=== PATIENT | female | born 1965 | race Caucasian/White ===

== ENCOUNTER 2017-02-01 21:00 | Inpatient (IN) | payer OTHER, MEDICARE ==
[~2017-02-01] VITALS: Ht 167.6 cm; Wt 93.9 kg
[2017-02-01 21:27] VITALS: BP 151/79; PULSE 98; RESP 19; TEMP 97.7; O2SAT 98
[2017-02-01] MEDS ORDERED: BENZTROPINE MESYLATE 1 MG TAB PO PRN (21:45)
[2017-02-01] MEDS ORDERED: GLUCAGON 1 MG/ML VIAL OTHER PRN (21:45)
[2017-02-01] MEDS ORDERED: LORazepam 2 MG/ML VIAL - age > 65 yrs IM PRN (21:45)
[2017-02-01] MEDS ORDERED: ALUMINUM/MAGNESIUM/SIMETH 30 ML CUP PO PRN (21:45)
[2017-02-01] MEDS ORDERED: DEXTROSE 50% IN WATER 50 ML VIAL(D50) IV PUSH PRN (21:45)
[2017-02-01] MEDS ORDERED: BENZTROPINE MESYLATE 2 MG/2 ML VIAL IM PRN (21:45)
[2017-02-01] MEDS ORDERED: MAGNESIUM HYDROXIDE SUSP 30 ML CUP PO PRN (21:45)
[2017-02-02] MEDS: LORazepam 0.5 MG TAB age > 65 yrs PO PRN ×2 (00:05→22:00)
[2017-02-02] MEDS: diphenhydrAMINE HCL 50 MG CAP - HS PRN PO ×2 (00:06→22:00)
[2017-02-02 06:08] VITALS: BP 102/65; PULSE 98; RESP 18; TEMP 97.8; O2SAT 97
[2017-02-02] MEDS: LOW DOSE INSULIN NOVOLOG SUPPLEMENTAL SCALE SQ SCH ×4 (06:21→21:24)
[2017-02-02] MEDS: NICOTINE 21 MG/24 HR PATCH T-DERMAL SCH (09:00)
[2017-02-02] MEDS: ACETAMINOPHEN 325 MG TAB PO PRN (09:34)
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
[2017-02-02 14:38] LABS: AUTOMATED NEUTROPHIL # 7.9 TH/MM3 (1.8-7.7); BASOPHIL % 0.3 % (0.0-2.0); EOSINOPHIL # 0.1 TH/MM3 (0-0.4); EOSINOPHIL % 1.2 % (0.0-4.0); HEMATOCRIT 42.2 % (35.0-46.0); HEMO FLAGS DIFF FINAL; LYMPH % 25.1 % (9.0-44.0); LYMPHOCYTE # 2.9 TH/MM3 (1.0-4.8); MEAN CELL VOLUME 88.4 FL (80.0-100.0); MEAN CORPUSCULAR HEMOGLOBIN 30.4 PG (27.0-34.0); MEAN CORPUSCULAR HGB CONC 34.4 % (32.0-36.0); MONO % 5.8 % (0.0-8.0); NEUT % 67.6 % (16.0-70.0); PLATELET COUNT 301 TH/MM3 (150-450); RED BLOOD COUNT 4.77 MIL/MM3 (4.00-5.30); RED CELL DISTRIBUTION WIDTH 13.1 % (11.6-17.2); WHITE BLOOD COUNT 11.7 TH/MM3 (4.0-11.0)
[2017-02-02 15:05] LABS: ALKALINE PHOSPHATASE 90 U/L (45-117); ALT (GPT) 46 U/L (10-53); ANION GAP 10 MEQ/L (5-15); AST (GOT) 29 U/L (15-37); BICARBONATE 27.7 MEQ/L (21.0-32.0); BLOOD UREA NITROGEN 20 MG/DL (7-18); CHLORIDE 95 MEQ/L (98-107); GLOMERULAR FILTRATION RATE 68 ML/MIN (>89); HDL CHOLESTEROL 44.6 MG/DL (40.0-60.0); POTASSIUM 4.4 MEQ/L (3.5-5.1); SODIUM (NA) 133 MEQ/L (136-145); TOTAL BILIRUBIN ADULT 0.3 MG/DL (0.2-1.0)
[2017-02-02 16:27] LABS: HEMOGLOBIN A1b 2.3 %; HEMOGLOBIN Ao 82.9 %; HEMOGLOBIN LA1C 2.8 %; HEMOGLOBIN P3 4.2 %
[2017-02-02 16:48] LABS: AMPHETAMINE, URINE NEG (NEG); BARBITURATES, URINE NEG (NEG); COCAINE, URINE NEG (NEG)
--- NOTE | 2017-02-02 16:59 | PD.CONS ---
[facility] By Dr. Basurto Reason for Consult Medical management Primary Care Physician Unknown Diagnoses: History of Present Illness Ms. Luo is a 51-year-old female with a known history of chronic pain with opiate dependency and suicidal ideation, depression, anxiety, diabetes mellitus , BRONSON, gastroparesis, rheumatoid arthritis and systemic lupus. Patient had recent hospitalization this month at [facility] for a 10-day episode of nausea, vomiting and continued abdominal pain with inability to take her medications for 3-4 days prior to hospitalization. Per records, supposedly patient's family brought her to the hospital due to altered mental status, hallucinations with suicidal ideations and patient was mtz acted at that time , all likely related to withdrawal of opiates. At this time, patient is seen in 2600 psych unit due to suicidal ideations in the Emergency room related to her severe neck pain. She does state that she has had neck surgery in the past and now on Morphine 60 mg PO daily at home for ongoing neck pain and associated right arm pain for 3 years now. Patient states that pain in the neck is squeezing in nature with a dull ache in her right upper extremity which subsides with use and movement. Patient does state that she had cholecystectomy eight months ago and since then has been of severe vomiting, inability to take her medications appropriately and has required multiple hospitalizations. Her gastroparesis is often associated with nausea, diaphoresis and episodes of vertigo. Patient also complains of increased fatigue and history of obstructive sleep apnea, with use of CPAP but states her machine has been broken for four months now. She states her PCP is Dr. Shah but has not seen him for quite some time. Denies any recent fever, chills, cough, chest pain, shortness of breath, diarrhea, or constipation. Review of Systems Gastrointestinal: COMPLAINS OF: Abdominal pain, Nausea, Vomiting Psychiatric: COMPLAINS OF: Anxiety, Suicidal Ideation Except as stated in HPI: all other systems reviewed are Neg Past Family Social History Allergies: Coded Allergies: Penicillin (Verified Allergy, Severe, 02/01/17) Past Medical History Diabetes mellitus Rheumatoid arthritis in right knee on Methotrexate for 6 years now. Fibromyalgia Systemic lupus Hypertension Opiate dependence Hyperlipidemia Anxiety Depression Bipolar disorder Peripheral neuropathy Follicular lymphoma Colon cancer Bipolar disorder Neck pain with history of surgery Past Surgical History Cholecystectomy 2016 Neck surgery with screws. Hysterectomy Lymphadenectomy Partial colon resection x 1. Active Ordered Medications Medications (Trade) Dose Ordered Sig/Anna Route Start Time Stop Time Status Last Admin (D50w (Vial) Inj) 25 ml UNSCH PRN IV PUSH 02/01/17 21:45 (Glucagon Inj) 1 mg UNSCH PRN OTHER 02/01/17 21:45 (Ativan) 0.5 mg Q12H PRN PO 02/01/17 21:45 02/02/17 00:05 (Ativan Inj) 0.5 mg Q12H PRN IM 02/01/17 21:45 (Cogentin) 1 mg Q12H PRN PO 02/01/17 21:45 (Cogentin Inj) 1 mg Q12H PRN IM 02/01/17 21:45 (Benadryl) 50 mg HS PRN PO 02/01/17 21:45 02/02/17 00:06 (Tylenol) 650 mg Q4H PRN PO 02/01/17 21:45 02/02/17 09:34 (Milk Of Magnesia Liq) 30 ml DAILY PRN PO 02/01/17 21:45 (Mag-Al Plus Susp Liq) 30 ml Q6H PRN PO 02/01/17 21:45 (Habitrol 21 Mg Patch.24 Hr) 1 patch DAILY T-DERMAL 02/02/17 09:00 Miscellaneous Information 1 HS T-DERMAL 02/02/17 21:00 Family History Maternal medical history includes hypertension. Father has active diabetes. Social History Patient denies tobacco use. Denies alcohol use. Denies illicit drug use. Physical Exam Vital Signs Vital Signs Date Time Temp Pulse Resp B/P Pulse Ox O2 Delivery O2 Flow Rate FiO2 02/02/17 06:08 97.8 98 18 102/65 97 02/01/17 21:27 97.7 98 19 151/79 98 Physical Exam GENERAL: Well-nourished, well-developed patient in NAD. SKIN: Warm and dry. No rash. HEENT: Normocephalic. Atraumatic. Pupils equal and round. No scleral icterus. No injection or drainage. No nasal bleeding or discharge. Mucous membranes pink and moist. Supple. Trachea midline. CARDIOVASCULAR: Regular rate and rhythm. S1, S2 noted. No murmur appreciated. RESPIRATORY: No accessory muscle use. CTA. Breath sounds equal bilaterally. GASTROINTESTINAL: Abdomen soft, non-tender, nondistended. Normoactive bowel sounds x4. MUSCULOSKELETAL: No obvious deformities. Extremities without clubbing, cyanosis , or edema. NEUROLOGICAL: Awake and alert. No obvious cranial nerve deficits. Motor grossly within normal limits. 5/5 muscle strength in bilateral upper and lower extremities. Normal speech. PSYCHIATRIC: Appropriate mood and affect; insight and judgment normal. Laboratory Laboratory Tests Test 02/02/17 13:52 White Blood Count 11.7 Red Blood Count 4.77 Hemoglobin 14.5 Hematocrit 42.2 Mean Corpuscular Volume 88.4 Mean Corpuscular Hemoglobin 30.4 Mean Corpuscular Hemoglobin 34.4 Concent Red Cell Distribution Width 13.1 Platelet Count 301 Mean Platelet Volume 8.2 Neutrophils (%) (Auto) 67.6 Lymphocytes (%) (Auto) 25.1 Monocytes (%) (Auto) 5.8 Eosinophils (%) (Auto) 1.2 Basophils (%) (Auto) 0.3 Neutrophils # (Auto) 7.9 Lymphocytes # (Auto) 2.9 Monocytes # (Auto) 0.7 Eosinophils # (Auto) 0.1 Basophils # (Auto) 0.0 CBC Comment DIFF FINAL Differential Comment Sodium Level 133 Potassium Level 4.4 Chloride Level 95 Carbon Dioxide Level 27.7 Anion Gap 10 Blood Urea Nitrogen 20 Creatinine 0.87 Estimat Glomerular Filtration 68 Rate Random Glucose 212 Calcium Level 9.3 Total Bilirubin 0.3 Aspartate Amino Transf 29 (AST/SGOT) Alanine Aminotransferase 46 (ALT/SGPT) Alkaline Phosphatase 90 Total Protein 8.4 Albumin 3.9 Triglycerides Level 422 Cholesterol Level 232 LDL Cholesterol HDL Cholesterol 44.6 Cholesterol/HDL Ratio 5.20 Thyroid Stimulating Hormone 0.505 3rd Gen Beta HCG, Qualitative LESS THAN 1 Result Diagram: 02/02/17 1352 02/02/17 1352 Assessment and Plan Assessment and Plan Ms. Luo is a 51-year-old female with a known history of chronic pain with opiate dependency and suicidal ideation, depression, anxiety, diabetes mellitus , BRONSON, gastroparesis, rheumatoid arthritis and systemic lupus. Patient had recent hospitalization this month at [facility] for a 10-day episode of nausea, vomiting and continued abdominal pain with inability to take her medications for 3-4 days prior to hospitalization. Per records, supposedly patient's family brought her to the hospital due to altered mental status, hallucinations with suicidal ideations and patient was mtz acted at that time , all likely related to withdrawal of opiates. Leukocytosis: WBC 11.7. CBC in am. Afebrile at this time. Monitor. Hyponatremia: NA 133. BMP in am. Monitor. Dyslipidemia: Triglycerides 422, cholesterol 232. Per ASCVD recommendations, consider high dose statin therapy. Speak to patient in am and consider starting on a statin. Hypertension: At this time stable, will monitor. Requested for medication reconciliation update. When done will restart home medications. Suicidal ideation, anxiety disorder, depression: Psych following. Cogentin and Ativan PRN. Monitor closely in psych unit for continued suicidal ideations or plan. Opiate dependency related to chronic neck pain: Lidoderm patch to neck daily. Morphine 30 mg PO BID. Diabetes mellitus: Continue SSI, insulin coverage as needed, stable at this time. 1800 ADA diabetic diet. Hemoglobin A1c pending. Obstructive sleep apnea: Patient refusing CPAP at this time. Recommended follow up in outpatient setting when discharged to obtain at home CPAP. Written by Muriel Mccord, acting as scribe for Dr. Duarte on 02/02/17 at 1500. This note was transcribed by scribe [Muriel Mccord]. I, Dr. Ramirez Duarte personally performed the history, physical exam, and medical decision making; and confirmed the accuracy of the information in the transcribed note. Authenticated by Dr. Ramirez Duarte on 02/02/17 at 23:22. Muriel Mccord Feb 02, 2017 16:59 Ramirez Duarte MD Feb 02, 2017 23:23
[2017-02-02] MEDS: LIDOCAINE HCL 5% PATCH T-DERMAL SCH (17:40)
[2017-02-02 20:00] VITALS: BP 122/79; PULSE 111; RESP 18; TEMP 97.9
[2017-02-02] MEDS ORDERED: REMOVE OLD NICOTINE PATCH T-DERMAL SCH (21:00)
[2017-02-02] MEDS: MORPHINE SULFATE 30 MG CONTROLLED RELEASE TAB PO SCH (21:23)
[2017-02-03] MEDS: ACETAMINOPHEN 325 MG TAB PO PRN (01:31)
[2017-02-03 06:14] VITALS: BP 109/71; PULSE 105; RESP 18; TEMP 98.2; O2SAT 96
[2017-02-03] MEDS: LOW DOSE INSULIN NOVOLOG SUPPLEMENTAL SCALE SQ SCH ×3 (06:45→16:35)
[2017-02-03 08:22] LABS: AUTOMATED NEUTROPHIL # 4.3 TH/MM3 (1.8-7.7); BASOPHIL # 0.1 TH/MM3 (0-0.2); BASOPHIL % 0.7 % (0.0-2.0); EOSINOPHIL # 0.2 TH/MM3 (0-0.4); EOSINOPHIL % 2.4 % (0.0-4.0); HEMATOCRIT 44.1 % (35.0-46.0); HEMO FLAGS DIFF FINAL; LYMPH % 38.9 % (9.0-44.0); LYMPHOCYTE # 3.4 TH/MM3 (1.0-4.8); MEAN CELL VOLUME 91.5 FL (80.0-100.0); MEAN CORPUSCULAR HEMOGLOBIN 29.8 PG (27.0-34.0); MEAN CORPUSCULAR HGB CONC 32.6 % (32.0-36.0); MONO % 8.4 % (0.0-8.0); NEUT % 49.6 % (16.0-70.0); PLATELET COUNT 207 TH/MM3 (150-450); RED BLOOD COUNT 4.82 MIL/MM3 (4.00-5.30); RED CELL DISTRIBUTION WIDTH 13.5 % (11.6-17.2); WHITE BLOOD COUNT 8.7 TH/MM3 (4.0-11.0)
[2017-02-03] MEDS: MORPHINE SULFATE 30 MG CONTROLLED RELEASE TAB PO SCH (08:34)
[2017-02-03] MEDS: NICOTINE 21 MG/24 HR PATCH T-DERMAL SCH (08:34)
[2017-02-03] MEDS: LIDOCAINE HCL 5% PATCH T-DERMAL SCH (08:35)
[2017-02-03 08:43] LABS: ALKALINE PHOSPHATASE 78 U/L (45-117); ALT (GPT) 39 U/L (10-53); ANION GAP 10 MEQ/L (5-15); AST (GOT) 19 U/L (15-37); BICARBONATE 28.3 MEQ/L (21.0-32.0); BLOOD UREA NITROGEN 17 MG/DL (7-18); CHLORIDE 98 MEQ/L (98-107); GLOMERULAR FILTRATION RATE 81 ML/MIN (>89); HDL CHOLESTEROL 52.5 MG/DL (40.0-60.0); LDL CHOLESTEROL 148 MG/DL (0-99); POTASSIUM 3.8 MEQ/L (3.5-5.1); SODIUM (NA) 136 MEQ/L (136-145); TOTAL BILIRUBIN ADULT 0.4 MG/DL (0.2-1.0)
[2017-02-03] MEDS ORDERED: REMOVE OLD PATCH T-DERMAL SCH (09:00)
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
[2017-02-03] MEDS ORDERED: SERO50TA PO (11:45)
--- NOTE | 2017-02-03 14:15 | HHI.PR ---
Subjective Remarks Follow up chronic neck pain, suicidal ideation and nausea and vomiting. Patient seen and examined today by myself and Dr. Bassett. Patient sitting at the lunch table tolerating PO intake. Denies any nausea or vomiting. No new acute complaints. Patient states that neck pain is much better since Lidoderm patch. Also states her mood is much improved. Denies any recent fever, chills, shortness of breath, chest pain, or palpitations. Objective Vitals Vital Signs Date Time Temp Pulse Resp B/P Pulse Ox O2 Delivery O2 Flow Rate FiO2 02/03/17 06:14 98.2 105 18 109/71 96 02/02/17 20:00 97.9 111 18 122/79 Result Diagram: 02/03/1765702/03/17657 Objective Remarks GENERAL: Well-nourished, well-developed patient in NAD. SKIN: Warm and dry. No rash. HEENT: Normocephalic. Atraumatic. Pupils equal and round. No scleral icterus. Mucous membranes pink and moist. Supple. Trachea midline. CARDIOVASCULAR: Regular rate and rhythm. S1, S2 noted. No murmur appreciated. RESPIRATORY: No accessory muscle use. Clear to auscultation. Breath sounds equal bilaterally. GASTROINTESTINAL: Abdomen soft, non-tender, nondistended. Normoactive bowel sounds x4. MUSCULOSKELETAL: No obvious deformities. Extremities without clubbing, cyanosis , or edema. NEUROLOGICAL: Awake and alert. No obvious cranial nerve deficits. Motor grossly within normal limits. 5/5 muscle strength in bilateral upper and lower extremities. Normal speech. PSYCHIATRIC: Appropriate mood and affect; insight and judgment normal. Urinary Catheter: No Vascular Central Line Catheter: No A/P Problem List: (1) Adjustment disorder with mixed disturbance of emotions and conduct ICD Code: F43.25 Status: Acute Assessment and Plan Ms. Luo is a 51-year-old female with a known history of chronic pain with opiate dependency and suicidal ideation, depression, anxiety, diabetes mellitus , BRONSON, gastroparesis, rheumatoid arthritis and systemic lupus. Patient had recent hospitalization this month at [facility] for a 10-day episode of nausea, vomiting and continued abdominal pain with inability to take her medications for 3-4 days prior to hospitalization. Per records, supposedly patient's family brought her to the hospital due to altered mental status, hallucinations with suicidal ideations and patient was mtz acted at that time , all likely related to withdrawal of opiates. Leukocytosis, improved: WBC 11.7 --> 8.7. Afebrile. Hyponatremia, improved: NA 133 --> 136. Dyslipidemia: Triglycerides 422, today 02/03 183. Cholesterol 232, today 02/03 237. Per ASCVD recommendations, consider high dose statin therapy. Spoke to patient about starting her on a statin, patient states she is on Crestor at home , unsure of which dose. Since patient is being discharged today, recommend follow up with PCP in 1 week for recommendations on statin dose. Hypertension, stable. Continue home medications. Suicidal ideation, anxiety disorder, depression: Psych following, plan to discharge today. Patient denies any further suicidal ideation at this time. Opiate dependency related to chronic neck pain: Lidoderm patch to neck daily. Morphine 30 mg PO BID. More controlled today. Patient has Morphine 60 mg PO daily at home. Follow up with pain management and PCP upon discharge. Diabetes mellitus: 1800 ADA diabetic diet. Hemoglobin A1c 6.5. Obstructive sleep apnea: Patient's CPAP machine at home has been broken for 4 months now. Recommended follow up in outpatient setting when discharged to obtain at home CPAP. Gastroparesis with associated nausea and vomiting, resolved and controlled. Continue home medications. Written by Muriel Mccord, acting as scribe for Dr. Bassett on 02/03/17 at 1210. This note was transcribed by scribe [CLEMENTE Lerner]. I, Dr. Rin Bassett personally performed the history, physical exam, and medical decision making; and confirmed the accuracy of the information in the transcribed note. Authenticated by Dr. Rin Bassett on 02/03/17 at 1230. Discharge Planning Discharge home today. Muriel Mccord Feb 03, 2017 14:15 Rin Bassett MD Feb 03, 2017 17:12
--- NOTE | 2017-02-03 19:03 | EKG ---
Date Performed: 02/03/2017 Time Performed: 10:48:01 PTAGE: 51 years EKG: SINUS TACHYCARDIA WITH SHORT SD INTERVAL ABNORMAL RHYTHM ECG NO PREVIOUS TRACING DOCTOR: Lelo Jamil Interpretating Date/Time 02/03/2017 19:02:25
== END 2017-02-03 17:50 | disposition home or self-care (01) | DRG 882 ==
LOC: H270 21:00 → H260 23:04
PROVIDERS: ADMIT Psychiatry & Neurology Psychiatry; ATTEND Psychiatry & Neurology Psychiatry
DX: F43.25 Adjustment disorder with mixed disturbance of emotions and conduct (principal); E11.43 Type 2 diabetes mellitus with diabetic autonomic (poly)neuropathy; M32.9 Systemic lupus erythematosus, unspecified; K31.84 Gastroparesis; R45.851 Suicidal ideations; F11.20 Opioid dependence, uncomplicated; E87.1 Hypo-osmolality and hyponatremia; G89.29 Other chronic pain; G47.33 Obstructive sleep apnea (adult) (pediatric); M06.9 Rheumatoid arthritis, unspecified; M79.7 Fibromyalgia; I10 Essential (primary) hypertension; E78.5 Hyperlipidemia, unspecified
CPT/HCPCS: 80053; 80061; 80307; 82948; 83036; 84443; 84703; 85025; 93005; J1815; Q0163